=== PATIENT | female | born 1995 | race African-American/Black ===

== ENCOUNTER 2018-05-09 08:41 | Outpatient (CLI) | payer OTHER | END 2018-05-09 12:59 | disposition home or self-care (01) | LOC: M LDO 08:41 | DX: O26.872 Cervical shortening, second trimester (principal); O99.112 Other diseases of the blood and blood-forming organs and certain disorders involving the immune mechanism complicating pregnancy, second trimester; D57.3 Sickle-cell trait; Z52.4 Kidney donor; Z3A.26 26 weeks gestation of pregnancy | CPT/HCPCS: 59025 ==

== ENCOUNTER → 2018-05-14 | Outpatient (CLI) | payer OTHER | LOC: M RAD 14:28 | DX: O26.872 Cervical shortening, second trimester (principal); Z3A.20 20 weeks gestation of pregnancy | CPT/HCPCS: 76817 ==

== ENCOUNTER → 2018-05-22 | Outpatient (CLI) | payer OTHER | LOC: M RAD 16:04 | DX: O43.192 Other malformation of placenta, second trimester (principal); O26.872 Cervical shortening, second trimester; O34.32 Maternal care for cervical incompetence, second trimester; Z3A.28 28 weeks gestation of pregnancy | CPT/HCPCS: 76817 ==

== ENCOUNTER 2018-07-21 19:31 | Inpatient (IN) | payer OTHER ==
[2018-07-21 20:26] LABS: HEMATOCRIT 22.2 % (36.0-47.0); HEMOGLOBIN 7.7 g/dl (12.0-15.5); MEAN CORPUSCULAR HEMOGLOBIN 31.4 pg (27.0-33.0); MEAN CORPUSCULAR HGB CONC 34.7 g/dl (32.0-36.5); MEAN CORPUSCULAR VOLUME 90.6 fl (80.0-96.0); PLATELET COUNT, AUTOMATED 196 10^3/uL (150-450); RED BLOOD COUNT 2.45 10^6/uL (4.00-5.40); RED CELL DISTRIBUTION WIDTH 13.6 % (11.5-14.5); WHITE BLOOD COUNT 10.6 10^3/uL (4.0-10.0)
[2018-07-21] MEDS: LR 1,000 ML IV (21:43)
[2018-07-21] MEDS: PENICILLIN G POTASSIUM IV 5 MU in D5W MINI-BAG PLUS 100 ML IV (21:43)
[2018-07-22] MEDS ORDERED: LR 1,000 ML IV (00:45)
[2018-07-22] MEDS: OXYTOCIN DRIP 30 UNITS in APPROPRIATE DILUENT 1 EA IV ×2 (00:59→05:06)
[2018-07-22] MEDS: PENICILLIN G POTASSIUM IV 2.5 MU in APPROPRIATE DILUENT 1 EA IV (01:48)
[2018-07-22] MEDS ORDERED: FENTANYL 2MCG/ML ROPIVACAINE 0.2% IN 0.9% NACL 200ML IVBAG As Ordered (02:17)
[2018-07-22] MEDS ORDERED: MORPHINE 10 MG/ML 1ML VIAL (J2270) As Ordered (04:42)
[2018-07-22] MEDS ORDERED: ONDANSETRON 4MG/2ML VIAL (J2405) IV ×2 (05:15→06:45)
[2018-07-22] MEDS: LIDOCAINE 1% MDV 20ML VIAL SC (05:15)
[2018-07-22] MEDS: MORPHINE 10 MG/ML 1ML VIAL (J2270) IV (05:15)
[2018-07-22] MEDS ORDERED: DOCUSATE SODIUM 100 MG CAP PO (05:15)
[2018-07-22] MEDS ORDERED: EPIDURAL/PCA KEYS XX (06:45)
[2018-07-22] MEDS ORDERED: diphenhydrAMINE INJ 50MG/ML VIAL (J1200) IV (06:45)
[2018-07-22] MEDS ORDERED: NALOXONE INJ 0.4 MG/1 ML VIAL (J2310) IV (06:45)
[2018-07-22] MEDS: FENTANYL/ROPIVACAINE/NACL BAG 200 ML EPIDURAL (06:45)
[2018-07-22] MEDS ORDERED: EPIDURAL COMMENT XX (06:45)
[2018-07-22] MEDS ORDERED: REFRIGERATOR IV KEYS XX (06:45)
[2018-07-22] MEDS: DIBUCAINE 1% OINTMENT 30GM TOP (07:30)
[2018-07-22] MEDS: ACETAMINOPHEN 500 MG TAB PO (07:34)
[2018-07-22] MEDS: IBUPROFEN 800 MG TAB PO ×2 (07:34→21:08)
[2018-07-22] MEDS: PRENATAL VITAMINS CHEWABLE TABLET PO (09:59)
[2018-07-22] MEDS: RHOGAM 300 MCG (1500 IU) INJ (J2790) IM (11:09)
[2018-07-22] MEDS: MEASLES,MUMPS,RUBELLA VACCINE INJ (MMR-II) (90707) SC (11:10)
[2018-07-22 12:18] LABS: HEMATOCRIT 20.6 % (36.0-47.0); HEMOGLOBIN 7.1 g/dl (12.0-15.5); MEAN CORPUSCULAR HEMOGLOBIN 31.3 pg (27.0-33.0); MEAN CORPUSCULAR HGB CONC 34.5 g/dl (32.0-36.5); MEAN CORPUSCULAR VOLUME 90.7 fl (80.0-96.0); PLATELET COUNT, AUTOMATED 192 10^3/uL (150-450); RED BLOOD COUNT 2.27 10^6/uL (4.00-5.40); RED CELL DISTRIBUTION WIDTH 13.5 % (11.5-14.5)
[2018-07-23] MEDS: ACETAMINOPHEN 500 MG TAB PO (03:22)
[2018-07-23 07:29] LABS: HEMATOCRIT 20.9 % (36.0-47.0); HEMOGLOBIN 7.3 g/dl (12.0-15.5); MEAN CORPUSCULAR HEMOGLOBIN 31.1 pg (27.0-33.0); MEAN CORPUSCULAR HGB CONC 34.9 g/dl (32.0-36.5); MEAN CORPUSCULAR VOLUME 88.9 fl (80.0-96.0); PLATELET COUNT, AUTOMATED 217 10^3/uL (150-450); RED BLOOD COUNT 2.35 10^6/uL (4.00-5.40); RED CELL DISTRIBUTION WIDTH 13.6 % (11.5-14.5); WHITE BLOOD COUNT 12.4 10^3/uL (4.0-10.0)
[2018-07-23] MEDS: PRENATAL VITAMINS CHEWABLE TABLET PO (07:39)
[2018-07-23] MEDS: FERROUS SULFATE 325MG TAB PO ×2 (07:43→21:56)
[2018-07-23] MEDS: ADACEL/BOOSTRIX VACCINE (DIPHTH/PERTUSS/ACELL/TETANUS)0.5ML SYR (90715) IM (08:08)
[2018-07-23] MEDS: IBUPROFEN 800 MG TAB PO (12:35)
[2018-07-24] MEDS: IBUPROFEN 800 MG TAB PO ×2 (01:12→08:52)
[2018-07-24] MEDS: ACETAMINOPHEN 500 MG TAB PO (03:40)
[2018-07-24] MEDS: PRENATAL VITAMINS CHEWABLE TABLET PO (08:50)
[2018-07-24] MEDS: FERROUS SULFATE 325MG TAB PO (08:50)
== END 2018-07-24 13:45 | disposition home or self-care (01) | DRG 775 ==
LOC: M LDO 19:31 → M OBS 07-22 06:50 → M LDI 19:49
PROVIDERS: Obstetrics & Gynecology
PROC: 30233N1 Transfusion of Nonautologous Red Blood Cells into Peripheral Vein, Percutaneous Approach (ICD-10-PCS; 2018-07-21)
PROC: 10E0XZZ Delivery of Products of Conception, External Approach (ICD-10-PCS; principal; 2018-07-22)
PROC: 0HQ9XZZ Repair Perineum Skin, External Approach (ICD-10-PCS; 2018-07-22)
DX: O99.02 Anemia complicating childbirth (principal); D57.3 Sickle-cell trait; Z3A.37 37 weeks gestation of pregnancy; O99.824 Streptococcus B carrier state complicating childbirth; O70.0 First degree perineal laceration during delivery; Z37.0 Single live birth

== ENCOUNTER 2018-11-21 18:15 | Emergency (ER) | payer OTHER ==
[~2018-11-21] VITALS: Ht 177.8 cm; Wt 77.3 kg
[~2018-11-21 18:15] MED LIST: COLA100C5 PO; IBUP-1114 PO; IRON27TA2 PO; MAPA500T2 PO; PRENTAB9 PO
[2018-11-21] MEDS ORDERED: ACETAMINOPHEN 325 MG TAB PO ONE (18:45)
--- NOTE | 2018-11-21 19:24 | REPVR ---
EXAM: CT Head Without Contrast EXAM DATE/TIME: 11/21/2018 6:47 PM CLINICAL HISTORY: 23 years old, female; Injury or trauma; Fall; Initial encounter; Blunt trauma (contusions or hematomas); Consciousness not specified TECHNIQUE: Axial computed tomography images of the head/brain without contrast. All CT scans at this facility use at least one of these dose optimization techniques: automated exposure control; mA and/or kV adjustment per patient size (includes targeted exams where dose is matched to clinical indication); or iterative reconstruction. COMPARISON: No relevant prior studies available. FINDINGS: Brain: Normal. No hemorrhage. No significant white matter disease. No edema. Ventricles: Normal. No ventriculomegaly. Bones/joints: Unremarkable. No acute fracture. Sinuses: Visualized sinuses are unremarkable. No acute sinusitis. Mastoid air cells: Visualized mastoid air cells are unremarkable. No mastoid effusion. Soft tissues: Unremarkable. IMPRESSION: No acute intracranial abnormality. Electronically signed by: Marck Yan On 11/21/2018 19:24:29 PM
[2018-11-21 19:41] VITALS: BP 130/70
== END 2018-11-21 19:42 | disposition home or self-care (01) ==
LOC: M ED 18:15
DX: S00.03XA Contusion of scalp, initial encounter (principal); W19.XXXA Unspecified fall, initial encounter; Y92.89 Other specified places as the place of occurrence of the external cause; Y93.9 Activity, unspecified; Y99.1 Military activity

== ENCOUNTER 2018-11-24 18:41 | Emergency (ER) | payer OTHER ==
[~2018-11-24] VITALS: Ht 177.8 cm; Wt 77.3 kg
[2018-11-24 18:42] VITALS: BP 121/79
[2018-11-24] MEDS ORDERED: KETOROLAC TROMETHAMINE 10 MG TAB PO ONE (21:15)
[2018-11-24] MEDS ORDERED: CYCLOBENZAPRINE 10 MG TAB PO ONE (22:30)
[2018-11-24] MEDS ORDERED: IBUP80TA PO (22:34)
[2018-11-24] MEDS ORDERED: CYCL5TAB PO (22:34)
--- NOTE | 2018-11-25 07:22 | REP ---
Left hand four views : There is no fracture or dislocation. Mineralization and joint spaces are normal. There are no calcifications or foreign bodies. Impression: Negative left hand of the . Electronically Signed by Saul Hartmann MD 11/25/2018 07:14 A
--- NOTE | 2018-11-25 07:29 | REP ---
Right shoulder three view : There is no fracture or dislocation. Mineralization and joint spaces are normal. There are no calcifications or foreign bodies. Impression: Negative right shoulder. No . Electronically Signed by Saul Hartmann MD 11/25/2018 07:21 A
== END 2018-11-24 22:46 | disposition home or self-care (01) ==
LOC: M ED 18:41
DX: S46.811A Strain of other muscles, fascia and tendons at shoulder and upper arm level, right arm, initial encounter (principal); S63.602A Unspecified sprain of left thumb, initial encounter; M54.9 Dorsalgia, unspecified; Z90.5 Acquired absence of kidney; Y04.8XXA Assault by other bodily force, initial encounter; Y92.410 Unspecified street and highway as the place of occurrence of the external cause

== ENCOUNTER 2019-11-26 06:00 | Emergency (ER) | payer OTHER ==
[~2019-11-26] VITALS: Ht 180.3 cm; Wt 74.1 kg
[~2019-11-26 06:00] MED LIST changes: +CYCL5TAB PO; +IBUP80TA PO
--- NOTE | 2019-11-26 07:55 | REP ---
Clinical: Trauma. Technique: AP, lateral, bilateral oblique views right toes . Findings: The osseous structures and joint spaces are intact and normal. There is no evidence for acute fracture or dislocation. Surrounding soft tissues are unremarkable. No subcutaneous emphysema or radiodense foreign body. Impression: No acute fracture or dislocation. Electronically Signed by Kenan Egan MD 11/26/2019 07:47 A
[2019-11-26 09:21] VITALS: BP 124/72
== END 2019-11-26 09:26 | disposition home or self-care (01) ==
LOC: M ED 06:00
DX: S93.504A Unspecified sprain of right lesser toe(s), initial encounter (principal); S90.121A Contusion of right lesser toe(s) without damage to nail, initial encounter; W51.XXXA Accidental striking against or bumped into by another person, initial encounter; Y92.099 Unspecified place in other non-institutional residence as the place of occurrence of the external cause; Y93.9 Activity, unspecified; Y99.9 Unspecified external cause status